=== PATIENT | male | born 1950 | race Caucasian/White ===

== ENCOUNTER 2017-04-03 05:31 | Inpatient (IN) | payer OTHER ==
[2017-04-03] MEDS ORDERED: NS 1,000 ML IV ONE (05:40)
--- NOTE | 2017-04-03 05:49 | EDPHY ---
H & P Stated Complaint: N/V, abd pain - possible food allergy reaction - Personal History Current Tetanus/Diphtheria Vaccine: No Current Tetanus Diphtheria and Acellular Pertussis (TDAP): No Tetanus Vaccine Date: >10 years - Medical/Surgical History Hx Asthma: No Hx Chronic Respiratory Disease: No Hx Diabetes: No Hx Cardiac Disease: No Hx Renal Disease: No Hx Cirrhosis: No Hx Alcoholism: No Hx HIV/AIDS: No Hx Splenectomy or Spleen Trauma: No Other PMH: arthrifibrosis - Social History Smoking Status: Never smoked Time Seen by Provider: 04/03/17 05:47 HPI/ROS: Chief Complaint: Nausea, vomiting, abdominal pain HPI: 66-year-old male began having abdominal pain last night about 8 o'clock. He then developed nausea and vomiting. He has vomited at least 20 times. Has had similar episodes in the past which she attributed to food allergies. Did take a charcoal tablet. He did have dark emesis after trouble tablet was not had any blood. His emesis is since cleared. Has had epigastric and lower abdominal pain. Pain at is no improved from a 9 on 10 to a 4 on 10. Patient states that he ate leftover salmon and mashed potatoes and some cheese for dinner last night. Attributes his symptoms to a bee stuck that he had at about 2 in the afternoon. Denies any fevers or chills. No chest pain or shortness of breath. ROS: 10 point Review of Systems is negative except as noted in the HPI. PMH: Corneal transplant, arthritis Social History: No smoking, no alcohol, no recreational drug use Family History: non-contributory Physical Exam: Gen: Awake, Alert, No Distress HEENT: Nose: no rhinorrhea Eyes: PERRLA, EOMI Mouth: Moist mucosa Neck: Supple, no JVD Chest: nontender, lungs clear to auscultation Heart: S1, S2 normal, no murmur Abd: Soft, diffuse tenderness primarily in the left upper quadrant and the left and right lower quadrant. Positive voluntary guarding, no rebound, hypoactive bowel sounds Back: no CVA tenderness, no midline tenderness Ext: no edema, non-tender Skin: no rash Neuro: CN II-XII intact, Sensation grossly intact, Strength 5/5 in bilateral upper and lower extremities (Karan Mckeon) Constitutional: Initial Vital Signs Temperature (C) 36.2 C 07/17/17 05:42 Heart Rate 85 04/03/17 05:42 Respiratory Rate 20 04/03/17 05:42 Blood Pressure 142/79 H 04/03/17 05:42 O2 Sat (%) 99 04/03/17 05:42 O2 Delivery Mode Room Air Allergies/Adverse Reactions: cocoa [chocolate] Allergy (Verified 04/03/17 05:42) corn Allergy (Verified 04/03/17 05:42) peanut Allergy (Verified 04/03/17 05:42) Penicillins Allergy (Verified 04/03/17 05:42) soy Allergy (Verified 04/03/17 05:42) Medical Decision Making ED Course/Re-evaluation: Patient is still complaining of some pain although some improvement after 4 mg of morphine and fluids. Repeat examination shows diffuse tenderness with guarding. Symptoms concerning for the possible bowel obstruction. In the waiting for his chemistry. Will get a CT scan of his abdomen and pelvis. Will given additional analgesia. He is requesting half when he got last time which would be 2 mg of morphine now. [address] Shipman pending CT scan of the abdomen and pelvis. ( Karan Mckeon) Other Provider: Care assumed at 6:[address] with plan for CT scan of abdomen and pelvis, disposition pending results. 708: high grade small bowel obstruction, Y[place]. CT scan personally reviewed and interpreted by myself, bowel obstruction. 710: Patient personally evaluated by myself. He is having some more pain and fentanyl 100 mcg and Reglan 10 mg IV ordered. Discussed and consented nasogastric tube. Results of the CT and plan for NG tube and admission with surgical consultation discussed with the patient. 717: Curtis Larkin, will admit. 750: post-NGT KUB ordered by staff trainer per hospital policy. (Jose Cruz Shipman) - Data Points Laboratory Results: Laboratory Results 04/03/17 05:55 04/03/17 06:32 04/03/17 04/03/17 04/03/17 06:32 06:29 05:55 WBC RBC Hgb POC Hgb 17.0 gm/dL gm/dL (13.7-17.5) Hct POC Hct 50 % % (40-51) MCV MCH MCHC RDW Plt Count MPV Neut % (Auto) Lymph % (Auto) [place] % (Auto) Eos % (Auto) Baso % (Auto) Nucleat RBC Rel Count Absolute Neuts (auto) Absolute Lymphs (auto) Absolute Monos (auto) Absolute Eos (auto) Absolute Basos (auto) Absolute Nucleated RBC Immature Gran % Immature Gran # Turbidity REJ POC Sodium 140 mEq/L mEq/L (134-144) Sodium 140 mEq/L mEq/L REJ (134-144) POC Potassium 4.0 mEq/L mEq/L (3.3-5.0) Potassium 4.3 mEq/L mEq/L REJ (3.5-5.2) POC Chloride 101 mEq/L mEq/L (97-110) Chloride 104 mEq/L mEq/L REJ (97-110) Carbon Dioxide 20 mEq/l L mEq/l REJ (22-31) Anion Gap 16 mEq/L mEq/L REJ (8-16) POC BUN 19 mg/dL mg/dL (7-23) BUN 18 mg/dL mg/dL REJ (7-23) Creatinine 0.8 mg/dL mg/dL REJ (0.7-1.3) POC Creatinine 0.8 mg/dL mg/dL (0.7-1.3) Estimated GFR > 60 REJ Glucose 128 mg/dL H mg/dL REJ (70-100) POC Glucose 136 mg/dL H mg/dL (70-100) Calcium 10.5 mg/dL H mg/dL REJ (8.5-10.4) Total Bilirubin 1.1 mg/dL mg/dL REJ (0.1-1.4) Conjugated Bilirubin 0.3 mg/dL mg/dL REJ (0.0-0.5) Unconjugated Bilirubin 0.8 mg/dL mg/dL REJ (0.0-1.1) AST 24 IU/L IU/L REJ (17-59) ALT 36 IU/L IU/L REJ (21-72) Alkaline Phosphatase 73 IU/L IU/L REJ (38-126) Total Protein 8.1 g/dL g/dL REJ (6.3-8.2) Albumin 4.9 g/dL g/dL REJ (3.5-5.0) Lipase 114.0 IU/L IU/L REJ (23-300) Specimen Hemolysis REJ 04/03/17 05:55 WBC 10.52 10^3/uL H 10^3/uL (3.80-9.50) RBC 5.59 10^6/uL 10^6/uL (4.40-6.38) Hgb 16.8 g/dL g/dL (13.7-17.5) POC Hgb Hct 48.7 % % (40.0-51.0) POC Hct MCV 87.1 fL fL (81.5-99.8) MCH 30.1 pg pg (27.9-34.1) MCHC 34.5 g/dL g/dL (32.4-36.7) RDW 13.1 % % (11.5-15.2) Plt Count 245 10^3/uL 10^3/uL (150-400) MPV 10.6 fL fL (8.7-11.7) Neut % (Auto) 91.7 % H % (39.3-74.2) Lymph % (Auto) 2.9 % L % (15.0-45.0) [place] % (Auto) 4.5 % % (4.5-13.0) Eos % (Auto) 0.0 % L % (0.6-7.6) Baso % (Auto) 0.4 % % (0.3-1.7) Nucleat RBC Rel Count 0.0 % % (0.0-0.2) Absolute Neuts (auto) 9.65 10^3/uL H 10^3/uL (1.70-6.50) Absolute Lymphs (auto) 0.31 10^3/uL L 10^3/uL (1.00-3.00) Absolute Monos (auto) 0.47 10^3/uL 10^3/uL (0.30-0.80) Absolute Eos (auto) 0.00 10^3/uL L 10^3/uL (0.03-0.40) Absolute Basos (auto) 0.04 10^3/uL 10^3/uL (0.02-0.10) Absolute Nucleated RBC 0.00 10^3/uL 10^3/uL (0-0.01) Immature Gran % 0.5 % % (0.0-1.1) Immature Gran # 0.05 10^3/uL 10^3/uL (0.00-0.10) Turbidity POC Sodium Sodium POC Potassium Potassium POC Chloride Chloride Carbon Dioxide Anion Gap POC BUN BUN Creatinine POC Creatinine Estimated GFR Glucose POC Glucose Calcium Total Bilirubin Conjugated Bilirubin Unconjugated Bilirubin AST ALT Alkaline Phosphatase Total Protein Albumin Lipase Specimen Hemolysis Medications Given: Discontinued Medications Fentanyl (Sublimaze) 100 mcg IVP EDNOW ONE Stop: 04/03/17 07:19 Last Admin: 04/03/17 07:27 Dose: 100 mcg Sodium Chloride (Ns) 1,000 mls @ 0 mls/hr IV ONCE ONE PRN Reason: Wide Open Stop: 04/03/17 05:41 Last Admin: 04/03/17 05:57 Dose: 1,000 mls Metoclopramide HCl (Reglan Injection) 10 mg IVP EDNOW ONE Stop: 04/03/17 07:19 Last Admin: 04/03/17 07:29 Dose: 10 mg Morphine Sulfate (Morphine) 4 mg IVP ONCE ONE Stop: 04/03/17 05:41 Last Admin: 04/03/17 05:57 Dose: 4 mg Morphine Sulfate (Morphine) 2 mg IVP EDNOW ONE Stop: 04/03/17 06:21 Last Admin: 04/03/17 06:20 Dose: 2 mg Point of Care Test Results: 04/03/17 06:29 POC Sodium 140 POC Potassium 4.0 POC Chloride 101 POC BUN 19 POC Creatinine 0.8 POC Glucose 136 H Departure - Departure Disposition: [facility] Inpatient Acute Clinical Impression: Small bowel obstruction Condition: Good Referrals: Lonnie Aguilar MD [Primary Care Provider] - As per Instructions
[2017-04-03 06:05] LABS: % IMMATURE GRANULYOCYTES 0.5 % (0.0-1.1); ABSOLUTE IMMATURE GRANULOCYTES 0.05 10^3/uL (0.00-0.10); ADD DIFF? NO; ADD MORPH? NO; ADD SCAN? NO; ATYPICAL LYMPHOCYTE FLAG 0 (0-99); FRAGMENT RBC FLAG 0 (0-99); HEMATOCRIT 48.7 % (40.0-51.0); HEMOGLOBIN 16.8 g/dL (13.7-17.5); LEFT SHIFT FLG 10 (0-99); LIPEMIA HEMOLYSIS FLAG 90 (0-99); MEAN CELL HEMOGLOBIN 30.1 pg (27.9-34.1); MEAN CELL HEMOGLOBIN CONCENTR. 34.5 g/dL (32.4-36.7); MEAN CELL VOLUME 87.1 fL (81.5-99.8); MEAN PLATELET VOLUME 10.6 fL (8.7-11.7); PLATELET CLUMPS FLAG 0 (0-99); PLATELET COUNT 245 10^3/uL (150-400); RED BLOOD CELL COUNT 5.59 10^6/uL (4.40-6.38); RED CELL DISTRIBUTION WIDTH 13.1 % (11.5-15.2)
[2017-04-03] MEDS ORDERED: IOPAMIDOL (ISOVUE-300) 100 ML BTL ONE (06:40)
[2017-04-03 07:01] LABS: ALANINE AMINOTRANSFERASE 36 IU/L (21-72); ALBUMIN 4.9 g/dL (3.5-5.0); ALKALINE PHOSPHATASE 73 IU/L (38-126); ANION GAP 16 mEq/L (8-16); ASPARTATE AMINOTRANSFERASE 24 IU/L (17-59); BILIRUBIN,TOTAL 1.1 mg/dL (0.1-1.4); BILIRUBIN-CONJUGATED 0.3 mg/dL (0.0-0.5); BILIRUBIN-UNCONJUGATED 0.8 mg/dL (0.0-1.1); CALCIUM 10.5 mg/dL (8.5-10.4); CARBON DIOXIDE 20 mEq/l (22-31); CHLORIDE 104 mEq/L (97-110); CREATININE 0.8 mg/dL (0.7-1.3); GLOMERULAR FILTRATION RATE > 60; GLUCOSE 128 mg/dL (70-100); POTASSIUM 4.3 mEq/L (3.5-5.2); SODIUM 140 mEq/L (134-144); TOTAL PROTEIN 8.1 g/dL (6.3-8.2)
[2017-04-03] MEDS ORDERED: METOCLOPRAMIDE 10 MG/2 ML VIAL IVP ONE (07:18)
[2017-04-03] MEDS ORDERED: fentaNYL 100 MCG/2 ML INJ IVP ONE (07:18)
[2017-04-03] MEDS ORDERED: ONDANSETRON 4 MG/2 ML VIAL IVP PRN (10:27)
--- NOTE | 2017-04-03 11:06 | SOAPPROG ---
SOAP Progress Note Assessment/Plan: Assessment: 66 MALE WITH SBO AND SX FOR >12 HRS/ NO PRIOR ABD SURGERY OR HERNIAS ? ETIOLOGY ABD SOFT, NONTENDER Plan:NG/ IVs/ OBS/ SURGERY IF NOT RESOLVING 04/03/17 11:03 Objective: Vital Signs Temp Pulse Resp BP Pulse Ox 37 C 95 16 146/81 H 98 04/03/17 09:03 04/03/17 09:03 04/03/17 09:03 04/03/17 09:03 04/03/17 09:03 04/02/17 04/03/17 04/04/17 05:59 05:59 05:59 Intake Total 1000 Output Total 300 Balance 700 ICD10 Worksheet Patient Problems: Problems Problem Status Onset Small bowel obstruction Acute
--- NOTE | 2017-04-03 13:04 | GHP ---
[f rep st] PREOP HISTORY AND PHYSICAL DATE OF ADMISSION: 04/03/2017 HISTORY OF PRESENT ILLNESS: Patient is a 66-year-old male who is admitted at this time with a small bowel obstruction. Comes to the ER this morning with over 12 hours of nausea, vomiting, and abdominal pain and distention. Apparently, writhing in pain when admitted. He is quite calm now, after NG tube and IV pain medicine. PAST MEDICAL HISTORY: Includes an orchidectomy at age 16 for an undescended testicle. No other major surgeries. No other major hospitalizations or serious illnesses. REVIEW OF SYSTEMS: Reveals no major cardiopulmonary symptoms. Does not smoke. Review of systems is negative on a full, complete 10-point review of systems. MEDICATIONS: None, except for supplements. ALLERGIES: Penicillin. PHYSICAL EXAMINATION: GENERAL: Reveals an alert, 66-year-old male who is in no acute distress. VITAL SIGNS: He is afebrile. Blood pressure 140/80. HEAD AND NECK: Reveal no icterus, no adenopathy, no thyromegaly, and no oral lesions. Pupils are normal. Neck is supple. CHEST: Clear and symmetric. CARDIAC: Reveals a regular rhythm without murmurs. ABDOMEN: Soft, slightly distended, nontender. There are no palpable hernias. Has bowel sounds. GENITALIA: Normal. EXTREMITIES: Benign with full pulses and full range of motion. SKIN: Reveals no major rashes or abnormalities. NEUROLOGIC: Physiologic and symmetric. IMPRESSION: Small bowel obstruction of uncertain etiology. PLAN: Admit for NG suction, IVs, observation. Surgery, if indicated. At the present time, his CT scan is consistent with high-grade small bowel obstruction , but no evidence of tumor on the CT scan. /[id number]/MODL MTDD
[2017-04-03] MEDS: CEPACOL LOZENGE PO PRN ×2 (14:04→21:01)
[2017-04-03] MEDS: HYDROmorphONE/DILAUDID 1 MG/ML SYR IVP PRN ×2 (15:05→19:40)
[2017-04-03] MEDS: FLUOROMETHOLONE 5 ML OPHT.BTL RTEYE SCH (17:11)
[2017-04-03] MEDS: POLYMYXIN B SULFATE/TMP 10 ML OPHT.BTL RTEYE SCH (17:11)
--- NOTE | 2017-04-03 22:03 | SOAPPROG ---
SOAP Progress Note Assessment/Plan: Assessment: 66 MALE WITH SBO AND SX FOR >12 HRS/ NO PRIOR ABD SURGERY OR HERNIAS ? ETIOLOGY ABD SOFT, NONTENDER Plan:NG/ IVs/ OBS/ SURGERY IF NOT RESOLVING 04/03/17 11:03 04/03/17 22:02 Continues to improve this evening with positive flatus/NG drainage decreased/ abdomen is soft nontender with no distention/ Plan probable DC NG in the morning depending on his 2 abdomen results Objective: Vital Signs Temp Pulse Resp BP Pulse Ox 36.7 C 60 18 112/57 L 97 04/03/17 19:16 04/03/17 19:16 04/03/17 19:16 04/03/17 19:16 04/03/17 19:16 04/02/17 04/03/17 04/04/17 05:59 05:59 05:59 Intake Total 1000 Output Total 1200 Balance -200 ICD10 Worksheet Patient Problems: Problems Problem Status Onset Small bowel obstruction Acute
[2017-04-04] MEDS: HYDROmorphONE/DILAUDID 1 MG/ML SYR IVP PRN ×3 (05:05→18:42)
[2017-04-04] MEDS: D5W 1/2 NS W/ 20 KCl/L 1,000 ML IV SCH ×2 (08:39→10:08)
[2017-04-04] MEDS: CEPACOL LOZENGE PO PRN ×5 (08:39→19:56)
--- NOTE | 2017-04-04 15:12 | SOAPPROG ---
SOAP Progress Note Assessment/Plan: Assessment/Plan: 66 Y M SBO. AXR with lots of stool. Not much distention. Clamp NGT. Start clears. SBFT. Abd soft. Seen by Trae. Dispo: possibly tomorrow if goes well. 04/04/17 15:11 Objective: Vital Signs Temp Pulse Resp BP Pulse Ox 36.6 C 63 16 138/63 H 98 04/04/17 15:02 04/04/17 15:02 04/04/17 15:02 04/04/17 15:02 04/04/17 15:02 04/03/17 04/04/17 04/05/17 05:59 05:59 05:59 Intake Total 1000 Output Total 1500 Balance -500 ICD10 Worksheet Patient Problems: Problems Problem Status Onset Small bowel obstruction Acute
[2017-04-04] MEDS: FLUOROMETHOLONE 5 ML OPHT.BTL RTEYE SCH (18:35)
[2017-04-04] MEDS: POLYMYXIN B SULFATE/TMP 10 ML OPHT.BTL RTEYE SCH (18:36)
[2017-04-05 07:43] VITALS: BP 115/67; PULSE 71; RESP 14; TEMP 97.6; O2SAT 99
--- NOTE | 2017-04-05 09:00 | SOAPPROG ---
SOAP Progress Note Assessment/Plan: Assessment/Plan: 66 Y M SBO. SBFT ok. Advance diet. D/c home if does well. Outpatient f/u. S: passing some gas and stool, no n/v O: dressed in street clothes. eager to go home alert, nad no wob rrr abd soft, nt, nabs 04/05/17 08:58 Objective: Vital Signs Temp Pulse Resp BP Pulse Ox 36.4 C 71 14 115/67 99 04/05/17 07:40 04/05/17 07:40 04/05/17 07:40 04/05/17 07:40 04/05/17 07:40 04/04/17 04/05/17 04/06/17 05:59 05:59 05:59 Intake Total 1000 1500 Output Total 1500 Balance -500 1500 ICD10 Worksheet Patient Problems: Problems Problem Status Onset Small bowel obstruction Acute
== END 2017-04-05 11:10 | disposition home or self-care (01) | DRG 390 ==
LOC: EDUNIT# → INTOOBSV 07:18 → OBSVTOIN 07:18 → F3E 08:39
PROVIDERS: ADMIT Surgery; ATTEND Surgery
DX: K56.60 Unspecified intestinal obstruction (principal); Z94.7 Corneal transplant status
CPT/HCPCS: 82947-QW; 96374; J1170; J2765; J3010; Q9967